=== PATIENT | male | born 1965 | race Caucasian/White ===

== ENCOUNTER 2024-01-13 07:20 | Emergency (ER) | payer BC, OTHER, SELFPAY ==
[2024-01-13 07:28] VITALS: O2SAT 98
[2024-01-13 07:29] VITALS: PULSE 80; O2SAT 98
[2024-01-13 07:30] VITALS: BP 185/97; PULSE 81; RESP 18; TEMP 36.4; O2SAT 98; BMI 39.3
[2024-01-13 07:31] VITALS: BP 163/92; PULSE 84; O2SAT 98
--- NOTE | 2024-01-13 07:48 | ED_ITS ---
HPI - Neuro Symptoms/Deficit General Chief Complaint: Eye Problems Stated Complaint: rt eye blood shot and rt side face no control Time Seen by Provider: 01/13/24 07:41 Source: patient Mode of arrival: Ambulatory History of Present Illness HPI Narrative: Patient here for right eye redness and discomfort with difficulty closing his right eye. Also has numbness and weakness to the right face. Also complains of slight slurred speech and right lip droop. Patient states symptoms started last with right eye irritation and redness. No known injury to this. By Thursday, 2 days ago lost feeling to his right face in had drooling out of the right side of the mouth and drooping of the right side of the face. Denies denies any limb numbness tingling or weakness. No headache. No rash. No confusion. No history of stroke. No history of hypercholesteremia. No prior history of Westfall's palsy On Anticoagulants: No Related Data Previous Rx's Medication Instructions Recorded methylprednisolone 4 mg tablets in See Rx Instructions PO .COMPLEX 01/13/24 a dose pack (Medrol (Bassem)) #21 ea valacyclovir 1 gram tablet 1,000 mg PO TID #21 tabs 01/13/24 (Valtrex) white petrolatum-mineral oil 56.8 1 applic EYE-RIGHT BEDTIME May use 01/13/24 %-42.5 % eye ointment (Refresh as needed #3.5 grams Lacri-Lube) Allergies Allergy/AdvReac Type Severity Reaction Status Date / Time No Known Drug Allergies Allergy Verified 01/13/24 07:33 Review of Systems Review of Systems Narrative: GENERAL: negative chills, fatigue, malaise, fever, sweats. HEENT: negative sinus pain, ear pain, sore throat RESPIRATORY: negative dyspnea, cough CARDIOVASCULAR: negative chest pain, palpitations GASTROINTESTINAL: negative nausea, vomiting, abdominal pain : negative dysuria, frequency, hematuria MUSCULOSKELETAL: negative muscle or bony pain SKIN: negative rash, skin lesions NEUROLOGIC: Positive slurred speech positive numbness positive facial droop negative headache negative limb complaints Hematologic/Lymphatic On Anticoagulants: No Patient History Social History Smoking Status: Former smoker Smoking Status: Former smoker alcohol intake frequency: holidays/special occasions only Substance Use Type: does not use Exam Narrative Exam Narrative: GENERAL: in no distress, not toxic not dyspneic HEAD: Normocephalic. EYES: Pupils equal round. Examination right eye. Sclera is injected. Fluorescein proparacaine Wood's lamp used. No foreign body. No abrasions. No ice rink sign. No Anisha sign. There is week closure of the upper eyelid compared to the left. Visual acuity 20/40 on the right, 2020 with both eyes. Patient requires using his glasses to read which is baseline ENT: Mucous membranes moist. NECK: Trachea midline. No carotid bruits CARDIOVASCULAR: Regular rate and rhythm, no irregular rate or rhythm on radial pulse or carotid pulses. RESPIRATORY: Clear to auscultation. Breath sounds equal bilaterally. No wheezes, rales, or rhonchi. GASTROINTESTINAL: Abdomen soft, non-tender EXTREMITIES: No gross deformities. BACK: No flank tenderness. NEURO: AOx4. Clear speech, there is right facial droop with asymmetric wrinkling of the right forehead. There is right lip drooping. Light touch feels different on the right forehead face as well. No tongue deviation. There is weakening of closure of the right eye lid compared to the left. Steady self gait strong equal bow rehairer light touch intact bilaterally and symmetric hands and legs and arms. SKIN: Warm and dry PSYCH: Not anxious, is cooperative Initial Vital Signs Initial Vital Signs: Vital Signs Pulse Oximetry 98 01/13/24 07:28 Course Orders Ordered: ED Orders 01/13/24 07:47 CT head/brain wo con Stat Discontinued Medications Fluorescein Sodium (Fluorescein 1 Mg Strip) 1 mg EYE-RIGHT NOW ONE Stop: 01/13/24 07:48 Last Admin: 01/13/24 08:07 Dose: 1 mg Documented By: Proparacaine HCl (Proparacaine 0.5% Ophth [facility]) 1 drops EYE-RIGHT NOW ONE Stop: 01/13/24 07:48 Last Admin: 01/13/24 08:07 Dose: 1 drop Documented By: Vital Signs Vital signs: Vital Signs - 8 hr 01/13/24 07:28 01/13/24 07:29 01/13/24 07:30 Temperature 97.6 F Pulse Rate 80 81 Respiratory Rate 18 Blood Pressure 185/97 H Pulse Oximetry 98 98 98 Oxygen Delivery Method Room Air 01/13/24 07:31 01/13/24 07:31 01/13/24 08:48 Temperature Pulse Rate 84 70 Respiratory Rate 18 Blood Pressure 163/92 H 152/83 H Pulse Oximetry 98 96 Oxygen Delivery Method Room Air MDM - Neuro Symptoms/Deficit Imaging Data CT scan - head: Radiologist's Impression: [address] [address] [address] Scan Report Signed Patient: Valdo Zamudio Sr MR#: [id number] : 1965 Acct:[id number] Age/Sex: 58 / M Date of Service: 01/13/24 Loc: ED Accession Number: [id number] Procedure: CT head/brain wo con Ordering Provider: Jose Garrett MD PROCEDURE: CT HEAD/BRAIN WO CON INDICATIONS: Right facial droop TECHNIQUE: Noncontrast 4.5 mm thick angled axial sections acquired from the foramen magnum to the vertex, with coronal and sagittal reformats. For radiation dose reduction, the following was used: automated exposure control, adjustment of mA and/or kV according to patient size. COMPARISON: None. FINDINGS: Image quality: Diagnostic. CSF spaces: Basal cisterns are patent. No extra-axial fluid collections. Ventricles are normal in size and shape. Brain: No midline shift. No intracranial masses or hemorrhage. Vang-white matter interface is normal. Skull and face: Calvarium and visualized facial bones are intact, without suspicious lesions. Sinuses: Visualized sinuses and mastoids are clear. IMPRESSION: No acute intracranial pathology. Dictated by: Sanjay Duke M.D. on 01/13/2024 at 8:27 Approved by: Sanjay Duke M.D. on 01/13/2024 at 8:29 [facility] Narrative Medical decision making narrative: Patient here for right eye redness and discomfort with difficulty closing his right eye. Also has numbness and weakness to the right face. Also complains of slight slurred speech and right lip droop. Patient states symptoms started last with right eye irritation and redness. No known injury to this. By Thursday, 2 days ago lost feeling to his right face in had drooling out of the right side of the mouth and drooping of the right side of the face. Denies denies any limb numbness tingling or weakness. No headache. No rash. No confusion. No history of stroke. No history of hypercholesteremia. 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 [facility] Medical records reviewed: Differential considered: Includes but not limited to Westfall's palsy stroke shingles Lab Test results independently reviewed as above. Pertinent findings: None indicated at this time Independently reviewed EKG none indicated at this time Imaging studies independently reviewed: CT head no acute finding Consultations: None indicated at this time Treatments: Prednisone Re-evaluations: 8:43 a.m. Updated patient results and exam results and clinical impression likely Westfall's palsy. Return precautions reviewed. Patient sees provider at the [facility]. Prescriptions for medications provided. Patient agrees with treatment plan. Desires discharge home. Return precautions reviewed. Updated patient to be careful about chewing that it may impair tongue movement. Also to be very careful in diligent about ointment to the eye to prevent dryness. Discussion: Appropriate for discharge home clinically is Westfall's palsy. There is lack of extremity complaints. No headache. No rash. There is asymmetric wrinkling of the forehead consistent with Westfall's palsy. Prescriptions provided. Return precautions reviewed he desires discharge home. Clinically Westfall's palsy and not a stroke. No code stroke or stroke scale indicated at this time. No blood work indicated. 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 No EKG. No chest complaints or palpitations. No history of atrial fibrillation. Diagnosis: Westfall's palsy Discharge Plan Departure Patient Disposition: Home Clinical Impression: Westfall's palsy Instructions: DI for [place] Palsy Activity Restrictions/Additional Instructions: Please see your family doctor within a week for re-evaluation. You are being treated for Westfall's palsy. Please continue steroid pack tomorrow. Please get your prescriptions filled today. Please use [id number] Lacri-Lube to the right eye to keep moisturized. You need to have this in your eye at nighttime to prevent dryness. Return if worse if any questions or concerns Prescriptions: New methylprednisolone [Medrol (Bassem)] 4 mg tablets,dose pack See Rx Instructions .ROUTE .COMPLEX Qty: 21 0RF Rx Instructions: orally per package directions valacyclovir [Valtrex] 1 gram tablet 1,000 mg PO TID Qty: 21 0RF Refresh Lacri-Lube 56.8-42.5 % ointment 1 applic EYE-RIGHT BEDTIME Qty: 3.5 0RF Stand Alone Forms: Patient Portal/API
[2024-01-13] MEDS: FLUORESCEIN 1 MG STRIP EYE-RIGHT (08:07)
[2024-01-13] MEDS: PROPARACAINE 0.5% OPHTH SOL 1 DROPS EYE-RIGHT (08:07)
[2024-01-13 08:48] VITALS: BP 152/83; PULSE 70; RESP 18; O2SAT 96
== END 2024-01-13 08:48 | disposition home or self-care (01) ==
PROVIDERS: Emergency Provider Emergency Medicine
DX: G51.0 Bell's palsy (principal)
CPT/HCPCS: 70450; 99282; 99284